=== PATIENT | male | born 1960 | race Caucasian/White ===

== ENCOUNTER 2016-05-10 00:06 | Emergency (ER) | payer OTHER ==
[~2016-05-10] VITALS: Ht 182.9 cm; Wt 94.3 kg
[2016-05-10 00:11] VITALS: BP 170/97; PULSE 78; RESP 16; TEMP 97.6; O2SAT 96
[2016-05-10 00:38] VITALS: BP 169/89; PULSE 74; RESP 18; TEMP 97.6; O2SAT 97
[2016-05-10] MEDS ORDERED: ASPI81CH CHEW (00:42)
[2016-05-10] MEDS ORDERED: LOSA25TA PO (00:42)
--- NOTE | 2016-05-10 01:03 | PD ---
HPI Chief Complaint: Complaint Time Seen by Provider: 00:59 Travel History International Travel<30 days: No Contact w/Intl Traveler<30days: No Traveled to known affect area: No History of Present Illness HPI 55-year-old male presents to the emergency department by private transportation the care of his spouse for evaluation of bleeding superficial vessel from the scrotum. Patient states he has multiple superficial vessels that bleed occasionally and this episode began this evening and after attempting to control bleeding on his own for 2 hours follow decided to come to the emergency room for evaluation. Patient states he attempted to apply direct pressure using cotton gauze pads. Patient states he even applied liquid bandage prior to arrival. Currently bleeding has stopped. Patient states episode began after trying to dry the area without hotel towel after taking a shower. Patient denies other concerns or complaints. Patient is not taking any blood thinning medications. PFSH Past Medical History Narrative Medical Hypertension, colon cancer status post chemotherapy and partial colectomy; no tobacco use no alcohol use; nursing notes reviewed Chemotherapy: Yes Diminished Hearing: No Hypertension: Yes Tetanus Vaccination: Unknown Influenza Vaccination: No Past Surgical History Abdominal Surgery: Yes (part of colon removed due to cancer 2012) Social History Alcohol Use: No Tobacco Use: No Substance Use: No Allergies-Medications (Allergen,Severity, Reaction): Coded Allergies: No Known Allergies (Unverified , 05/10/16) Reported Meds & Prescriptions Reported Meds & Active Scripts Active Reported Aspirin 81 Mg Chew 81 Mg CHEW DAILY Losartan (Losartan Potassium) 25 Mg Tab 25 Mg PO DAILY Review of Systems General / Constitutional: No: Fever Genitourinary: No: Pelvic Pain Skin: Positive Other (superficial hemangiomata), No Rash Hematologic/Lymphatic: No: Easy Bruising Physical Exam Narrative GEN: Well-developed well-nourished male in no acute distress no respiratory distress : Circumcised male with multiple small superficial scrotal hemangiomata with area of previous bleeding occluded by liquid Band-Aid with no active bleeding no other sites with active bleeding. Data Data Last Documented VS Vital Signs Date Time Temp Pulse Resp B/P Pulse Ox O2 Delivery O2 Flow Rate FiO2 05/10/16 01:12 70 18 166/88 98 05/10/16 00:38 97.6 MDM Medical Decision Making Medical Screen Exam Complete: Yes Emergency Medical Condition: Yes Medical Record Reviewed: Yes Differential Diagnosis Avulsed superficial scrotal hemangiomata, coagulopathy Narrative Course Patient has already successfully controlled the bleeding from the previously described avulsed superficial scrotal hemangiomata no bleeding at this time no induration no ecchymosis. Patient is encouraged to use topical Polysporin ointment as needed and to use caution with driving the area. Again to apply direct pressure should he have Diagnosis Primary Impression: Hemangioma of skin Referrals: Primary Care Physician as needed Patient Instructions: General Instructions Additional Instructions: Keep area clean and dry; apply topical Neosporin ointment sparingly as needed If recurrent bleeding apply direct pressure Follow-up with primary care provider as needed Return to the emergency department for any concerns or change in condition Massiel Leblanc MD May 10, 2016 01:03
[2016-05-10 01:12] VITALS: BP 166/88
== END 2016-05-10 01:15 | disposition home or self-care (01) ==
LOC: PHED 00:06
DX: D18.01 Hemangioma of skin and subcutaneous tissue (principal)
CPT/HCPCS: 99283